=== PATIENT | male | born 2005 | race Caucasian/White ===

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

== ENCOUNTER 2025-01-23 10:42 | Emergency (ER) | payer OTHER ==
[~2025-01-23] VITALS: Ht 185.4 cm; Wt 138.3 kg
[2025-01-23] MEDS ORDERED: VIBRAMYCIN100 MG PO (12:18)
== END 2025-01-23 12:32 | disposition home or self-care (01) ==
LOC: ED 10:42
DX: A26.0 Cutaneous erysipeloid (principal); Z98.890 Other specified postprocedural states